=== PATIENT | male | born 1965 | race Caucasian/White ===

== ENCOUNTER 2020-04-30 02:10 | Inpatient (IN) | payer OTHER, SELFPAY ==
[~2020-04-30] VITALS: Ht 175.3 cm; Wt 84.8 kg
[2020-04-30 02:18] VITALS: BP_SYST 124
[2020-04-30] MEDS ORDERED: NACL 0.9% 1,000 ML IV ONE ×2 (03:11→05:30)
[2020-04-30 03:56] LABS: BASOPHILS % (AUTO) 0.2 % (0.0-2.0); HEMOGLOBIN 13.3 g/dL (14.0-18.0); LYMPHOCYTES # (AUTO) 0.6 K/uL (1.0-5.5); LYMPHOCYTES % (AUTO) 9.1 % (20.5-51.5); MEAN CORPUSCULAR HEMOGLOBIN 28 pg (27-31); MEAN CORPUSCULAR HGB CONC 33 % (32-36); MEAN CORPUSCULAR VOLUME 85 fL (79.0-98.0); MONOCYTES # (AUTO) 0.2 K/uL (0.0-1.0); MONOCYTES % (AUTO) 2.9 % (1.7-9.3); NEUTROPHILS # (AUTO) 6.1 K/uL (1.8-7.7); NEUTROPHILS % (AUTO) 87.8 % (40.0-70.0); PLATELET COUNT (AUTO) 173 K/uL (130-430); RED BLOOD CELL COUNT(AUTO) 4.74 MIL/uL (4.2-6.2); RED CELL DISTRIBUTION WIDTH 13.3 % (9.0-15.0)
[2020-04-30 04:09] LABS: CALCIUM 7.8 mg/dL (8.4-11.0); CREATININE 0.83 mg/dL (0.55-1.30); POTASSIUM 4.3 mmol/L (3.5-5.1)
[2020-04-30 04:15] LABS: ALBUMIN 2.7 g/dL (3.4-4.8); TOTAL BILIRUBIN 0.3 mg/dL (0.0-1.0)
[2020-04-30 04:44] LABS: C-REACTIVE PROTEIN QUANT 25.7 mg/dL (0-0.5)
[2020-04-30 04:47] LABS: INR 1.1 (0.80-1.20)
[2020-04-30] MEDS ORDERED: ALBUTEROL MDI INHALATION 8 GM INH INH PRN ×2 (05:30→11:30)
[2020-04-30] MEDS ORDERED: cefTRIAXone 1 GM IVPB PREMIX 50 ML IV ONE (05:30)
[2020-04-30] MEDS ORDERED: DEXAMETHASONE SOD PHOSPHATE 10 MG/ML VIAL IVP ONE (05:30)
[2020-04-30] MEDS ORDERED: DEXAMETHASONE SOD PHOSPHATE 10 MG/ML VIAL ONE (05:39)
[2020-04-30] MEDS ORDERED: cefTRIAXone 1 GM VIAL ONE (05:41)
[2020-04-30] MEDS ORDERED: ALBU8.5H8 INH (06:29)
[2020-04-30] MEDS ORDERED: AZIT250T PO (06:29)
[2020-04-30 06:40] LABS: BILIRUBIN,URINE NEGATIVE (NEGATIVE); CLARITY/URINE CLEAR (CLEAR); COLOR,URINE YELLOW (YELLOW); GLUCOSE,URINE NEGATIVE (NEGATIVE); KETONES,URINE 2+ (NEGATIVE); LEUKOCYTE ESTERASE ,URINE NEGATIVE (NEGATIVE); NITRITE, URINE NEGATIVE (NEGATIVE); PH,URINE 6.5 (5.0-8.0); PROTEIN URINE 1+ (NEGATIVE); UROBILINOGEN,URINE 0.2 (0.2-1.0)
[2020-04-30 06:41] LABS: BLOOD, URINE TRACE (NEGATIVE)
[2020-04-30 07:00] VITALS: BP_SYST 111
[2020-04-30 07:11] LABS: BACTERIA,URINE FEW /HPF (None Seen); WBC,URINE 0-3 /HPF (0-3)
[2020-04-30] MEDS: FAMOTIDINE 20 MG TABLET PO SCH (09:00)
[2020-04-30] MEDS: ACETAMINOPHEN 325 MG TABLET PO PRN ×3 (09:00→17:36)
[2020-04-30] MEDS ORDERED: CHOLECALCIFEROL (VITAMIN D3) 2,000 UNIT TABLET PO ONE (10:00)
[2020-04-30] MEDS ORDERED: ASCORBIC ACID 500 MG TABLET PO ONE (10:00)
[2020-04-30 11:08] VITALS: BP_SYST 104
[2020-04-30] MEDS ORDERED: ENOXAPARIN SODIUM 40 MG/0.4 ML SYRINGE SUBCUT ONE (12:00)
[2020-04-30] MEDS: cefTRIAXone 1 GM in D5W 50 ML IV SCH (12:33)
[2020-04-30 16:05] VITALS: BP_SYST 118
[2020-04-30 20:20] VITALS: BP_SYST 109
[2020-04-30] MEDS: ASCORBIC ACID 500 MG TABLET PO SCH (20:30)
[2020-04-30 23:48] VITALS: BP_SYST 118
[2020-05-01] VITALS (7 sets, daily range): BP systolic 104–123
[2020-05-01] MEDS: ACETAMINOPHEN 325 MG TABLET PO PRN (00:42)
[2020-05-01] MEDS: DEXAMETHASONE SOD PHOSPHATE 10 MG/ML VIAL IVP SCH (06:45)
[2020-05-01 07:50] LABS: BASOPHILS % (AUTO) 0.6 % (0.0-2.0); HEMATOCRIT 37.2 % (36-54); HEMOGLOBIN 12.4 g/dL (14.0-18.0); LYMPHOCYTES # (AUTO) 0.9 K/uL (1.0-5.5); LYMPHOCYTES % (AUTO) 13.1 % (20.5-51.5); MEAN CORPUSCULAR HEMOGLOBIN 28 pg (27-31); MEAN CORPUSCULAR HGB CONC 33 % (32-36); MEAN CORPUSCULAR VOLUME 85 fL (79.0-98.0); MONOCYTES # (AUTO) 0.3 K/uL (0.0-1.0); MONOCYTES % (AUTO) 3.8 % (1.7-9.3); NEUTROPHILS # (AUTO) 5.8 K/uL (1.8-7.7); NEUTROPHILS % (AUTO) 82.5 % (40.0-70.0); PLATELET COUNT (AUTO) 222 K/uL (130-430); RED BLOOD CELL COUNT(AUTO) 4.38 MIL/uL (4.2-6.2); RED CELL DISTRIBUTION WIDTH 13.5 % (9.0-15.0)
[2020-05-01] MEDS: CHOLECALCIFEROL (VITAMIN D3) 2,000 UNIT TABLET PO SCH (08:13)
[2020-05-01] MEDS: FAMOTIDINE 20 MG TABLET PO SCH (08:13)
[2020-05-01] MEDS: ASCORBIC ACID 500 MG TABLET PO SCH ×2 (08:13→20:27)
[2020-05-01] MEDS: ENOXAPARIN SODIUM 40 MG/0.4 ML SYRINGE SUBCUT SCH (08:13)
[2020-05-01 08:58] LABS: ALBUMIN 2.3 g/dL (3.4-4.8); BILIRUBIN,DIRECT 0.2 mg/dL (0.0-0.3); CALCIUM 7.9 mg/dL (8.4-11.0); CREATININE 0.61 mg/dL (0.55-1.30); POTASSIUM 4.1 mmol/L (3.5-5.1); THYROID STIMULATING HORMONE 0.69 uIu/mL (0.34-4.82); TOTAL BILIRUBIN 0.4 mg/dL (0.0-1.0)
[2020-05-01] MEDS ORDERED: CHOLECALCIFEROL (VITAMIN D3) 2,000 UNIT TABLET PO SCH (09:00)
[2020-05-01] MEDS ORDERED: ENOXAPARIN SODIUM 40 MG/0.4 ML SYRINGE SUBCUT SCH (09:00)
[2020-05-01 09:44] LABS: C-REACTIVE PROTEIN QUANT 16.2 mg/dL (0-0.5)
[2020-05-01] MEDS: cefTRIAXone 1 GM in D5W 50 ML IV SCH (12:26)
[2020-05-02] VITALS: BP_SYST 106
[2020-05-02 04:00] VITALS: BP_SYST 108
[2020-05-02] MEDS: DEXAMETHASONE SOD PHOSPHATE 10 MG/ML VIAL IVP SCH (06:16)
[2020-05-02 06:37] LABS: HEPATITIS A AB, IgM Negative (Negative); HEPATITIS B CORE AB, IgM Negative (Negative); HEPATITIS B SURFACE AG Negative (Negative)
[2020-05-02 07:29] LABS: ALBUMIN 2.6 g/dL (3.4-4.8); BILIRUBIN,DIRECT 0.1 mg/dL (0.0-0.3); CALCIUM 8.4 mg/dL (8.4-11.0); CREATININE 0.61 mg/dL (0.55-1.30); POTASSIUM 4.4 mmol/L (3.5-5.1); TOTAL BILIRUBIN 0.4 mg/dL (0.0-1.0)
[2020-05-02] MEDS: ASCORBIC ACID 500 MG TABLET PO SCH ×2 (08:29→21:43)
[2020-05-02] MEDS: FAMOTIDINE 20 MG TABLET PO SCH (08:29)
[2020-05-02] MEDS: CHOLECALCIFEROL (VITAMIN D3) 2,000 UNIT TABLET PO SCH (08:29)
[2020-05-02] MEDS: ENOXAPARIN SODIUM 40 MG/0.4 ML SYRINGE SUBCUT SCH (08:29)
[2020-05-02 09:52] LABS: C-REACTIVE PROTEIN QUANT 8.8 mg/dL (0-0.5)
[2020-05-02 12:14] VITALS: BP_SYST 133
[2020-05-02] MEDS: cefTRIAXone 1 GM in D5W 50 ML IV SCH (12:31)
[2020-05-02 16:00] VITALS: BP_SYST 110
[2020-05-02 16:38] VITALS: BP_SYST 110
[2020-05-02 20:00] VITALS: BP_SYST 123
[2020-05-03] VITALS: BP_SYST 121
[2020-05-03] MEDS: DEXAMETHASONE SOD PHOSPHATE 10 MG/ML VIAL IVP SCH (06:41)
[2020-05-03 07:52] LABS: ALBUMIN 2.2 g/dL (3.4-4.8); C-REACTIVE PROTEIN QUANT 3.9 mg/dL (0-0.5); CALCIUM 8.2 mg/dL (8.4-11.0); CREATININE 0.65 mg/dL (0.55-1.30); POTASSIUM 3.9 mmol/L (3.5-5.1); TOTAL BILIRUBIN 0.3 mg/dL (0.0-1.0)
[2020-05-03 07:53] LABS: BASOPHILS % (AUTO) 0.1 % (0.0-2.0); HEMATOCRIT 38.5 % (36-54); HEMOGLOBIN 12.7 g/dL (14.0-18.0); LYMPHOCYTES # (AUTO) 0.8 K/uL (1.0-5.5); LYMPHOCYTES % (AUTO) 9.6 % (20.5-51.5); MEAN CORPUSCULAR HEMOGLOBIN 28 pg (27-31); MEAN CORPUSCULAR HGB CONC 33 % (32-36); MEAN CORPUSCULAR VOLUME 86 fL (79.0-98.0); MONOCYTES # (AUTO) 0.6 K/uL (0.0-1.0); MONOCYTES % (AUTO) 7.9 % (1.7-9.3); NEUTROPHILS # (AUTO) 6.6 K/uL (1.8-7.7); NEUTROPHILS % (AUTO) 82.4 % (40.0-70.0); PLATELET COUNT (AUTO) 331 K/uL (130-430); RED CELL DISTRIBUTION WIDTH 13.4 % (9.0-15.0)
[2020-05-03 08:00] VITALS: BP_SYST 108
[2020-05-03] MEDS: CHOLECALCIFEROL (VITAMIN D3) 2,000 UNIT TABLET PO SCH (08:24)
[2020-05-03] MEDS: FAMOTIDINE 20 MG TABLET PO SCH (08:24)
[2020-05-03] MEDS: ASCORBIC ACID 500 MG TABLET PO SCH ×2 (08:24→20:50)
[2020-05-03] MEDS: DOCUSATE SODIUM 250 MG CAPSULE PO SCH (08:24)
[2020-05-03] MEDS: ENOXAPARIN SODIUM 40 MG/0.4 ML SYRINGE SUBCUT SCH (09:29)
[2020-05-03 12:00] VITALS: BP_SYST 111
[2020-05-03] MEDS: cefTRIAXone 1 GM in D5W 50 ML IV SCH (13:59)
[2020-05-03 16:00] VITALS: BP_SYST 111
[2020-05-03 16:46] VITALS: BP_SYST 111
[2020-05-03 20:49] VITALS: BP_SYST 103
[2020-05-04 00:14] VITALS: BP_SYST 111
[2020-05-04] MEDS: DEXAMETHASONE SOD PHOSPHATE 10 MG/ML VIAL IVP SCH (06:20)
[2020-05-04 07:48] LABS: ALBUMIN 2.5 g/dL (3.4-4.8); CALCIUM 8.2 mg/dL (8.4-11.0); CREATININE 0.68 mg/dL (0.55-1.30); POTASSIUM 4.2 mmol/L (3.5-5.1); TOTAL BILIRUBIN 0.4 mg/dL (0.0-1.0)
[2020-05-04 07:53] VITALS: BP_SYST 108
[2020-05-04] MEDS: DOCUSATE SODIUM 250 MG CAPSULE PO SCH (08:45)
[2020-05-04] MEDS: ASCORBIC ACID 500 MG TABLET PO SCH ×2 (08:45→21:37)
[2020-05-04] MEDS: FAMOTIDINE 20 MG TABLET PO SCH (08:45)
[2020-05-04] MEDS: CHOLECALCIFEROL (VITAMIN D3) 2,000 UNIT TABLET PO SCH (08:45)
[2020-05-04] MEDS: ENOXAPARIN SODIUM 40 MG/0.4 ML SYRINGE SUBCUT SCH (08:47)
[2020-05-04 12:34] VITALS: BP_SYST 108
[2020-05-04] MEDS: cefTRIAXone 1 GM in D5W 50 ML IV SCH (13:20)
[2020-05-04 16:52] VITALS: BP_SYST 103
[2020-05-04 20:00] VITALS: BP_SYST 106
[2020-05-05] VITALS: BP_SYST 132
[2020-05-05] MEDS: DEXAMETHASONE SOD PHOSPHATE 10 MG/ML VIAL IVP SCH (05:52)
[2020-05-05 07:22] LABS: ALBUMIN 2.4 g/dL (3.4-4.8); BILIRUBIN,DIRECT 0.1 mg/dL (0.0-0.3); TOTAL BILIRUBIN 0.4 mg/dL (0.0-1.0)
[2020-05-05 08:00] VITALS: BP_SYST 102
[2020-05-05 08:49] LABS: C-REACTIVE PROTEIN QUANT 1.5 mg/dL (0-0.5)
[2020-05-05] MEDS: CHOLECALCIFEROL (VITAMIN D3) 2,000 UNIT TABLET PO SCH (09:13)
[2020-05-05] MEDS: FAMOTIDINE 20 MG TABLET PO SCH (09:13)
[2020-05-05] MEDS: ASCORBIC ACID 500 MG TABLET PO SCH ×2 (09:13→22:07)
[2020-05-05] MEDS: DOCUSATE SODIUM 250 MG CAPSULE PO SCH (09:13)
[2020-05-05] MEDS: ENOXAPARIN SODIUM 40 MG/0.4 ML SYRINGE SUBCUT SCH (09:14)
[2020-05-05 12:00] VITALS: BP_SYST 121
[2020-05-05] MEDS: cefTRIAXone 1 GM in D5W 50 ML IV SCH ×2 (13:30→14:20)
[2020-05-05 16:00] VITALS: BP_SYST 111
[2020-05-05 20:00] VITALS: BP_SYST 143
[2020-05-06] VITALS: BP_SYST 126
[2020-05-06] MEDS: ACETAMINOPHEN 325 MG TABLET PO PRN (03:17)
[2020-05-06] MEDS: DEXAMETHASONE SOD PHOSPHATE 10 MG/ML VIAL IVP SCH (06:18)
[2020-05-06 08:06] LABS: ALBUMIN 2.3 g/dL (3.4-4.8); BILIRUBIN,DIRECT 0.2 mg/dL (0.0-0.3); TOTAL BILIRUBIN 0.5 mg/dL (0.0-1.0)
[2020-05-06 09:30] VITALS: BP_SYST 100
[2020-05-06] MEDS: ASCORBIC ACID 500 MG TABLET PO SCH ×2 (10:02→21:27)
[2020-05-06] MEDS: FAMOTIDINE 20 MG TABLET PO SCH (10:02)
[2020-05-06] MEDS: DOCUSATE SODIUM 250 MG CAPSULE PO SCH (10:02)
[2020-05-06] MEDS: CHOLECALCIFEROL (VITAMIN D3) 2,000 UNIT TABLET PO SCH (10:03)
[2020-05-06] MEDS: ENOXAPARIN SODIUM 40 MG/0.4 ML SYRINGE SUBCUT SCH (10:03)
[2020-05-06 12:30] VITALS: BP_SYST 90
[2020-05-06] MEDS: cefTRIAXone 1 GM in D5W 50 ML IV SCH (13:41)
[2020-05-06 17:40] VITALS: BP_SYST 103
[2020-05-06 20:00] VITALS: BP_SYST 102
[2020-05-07] VITALS: BP_SYST 105
[2020-05-07] MEDS: DEXAMETHASONE SOD PHOSPHATE 10 MG/ML VIAL IVP SCH (06:20)
[2020-05-07 07:25] LABS: ALBUMIN 2.4 g/dL (3.4-4.8); CALCIUM 8.2 mg/dL (8.4-11.0); CREATININE 0.74 mg/dL (0.55-1.30); POTASSIUM 3.4 mmol/L (3.5-5.1); TOTAL BILIRUBIN 0.4 mg/dL (0.0-1.0)
[2020-05-07 08:00] VITALS: BP_SYST 103
[2020-05-07] MEDS: FAMOTIDINE 20 MG TABLET PO SCH (08:14)
[2020-05-07] MEDS: ASCORBIC ACID 500 MG TABLET PO SCH (08:14)
[2020-05-07] MEDS: ENOXAPARIN SODIUM 40 MG/0.4 ML SYRINGE SUBCUT SCH (08:14)
[2020-05-07] MEDS: CHOLECALCIFEROL (VITAMIN D3) 2,000 UNIT TABLET PO SCH (08:14)
[2020-05-07] MEDS: DOCUSATE SODIUM 250 MG CAPSULE PO SCH (08:14)
[2020-05-07 08:33] VITALS: BP_SYST 102
[2020-05-07] MEDS: cefTRIAXone 1 GM in D5W 50 ML IV SCH (12:13)
[2020-05-07 12:14] VITALS: BP_SYST 95
[2020-05-07 16:47] VITALS: BP_SYST 102
[2020-05-07] MEDS ORDERED: POTASSIUM CHLORIDE 10 MEQ TAB.PRT.SR PO ONE (18:15)
[2020-05-07] MEDS ORDERED: DEC4 PO (18:57)
[2020-05-07] MEDS ORDERED: DOXY100C PO (18:58)
[2020-05-07] MEDS ORDERED: FAMO-132 PO (18:58)
[2020-05-07] MEDS ORDERED: ASCO500T20 PO (18:59)
[2020-05-07] MEDS ORDERED: ZINC220T4 PO (18:59)
[2020-05-07] MEDS ORDERED: APIX2.5T PO (19:00)
[2020-05-07] MEDS ORDERED: VITD2000 PO (19:00)
== END 2020-05-07 19:40 | disposition home or self-care (01) | DRG 871 ==
LOC: SED 02:10 → STU 05:25
PROVIDERS: ADMIT Internal Medicine; ATTEND Internal Medicine
PROC: XW13325 Transfusion of Convalescent Plasma (Nonautologous) into Peripheral Vein, Percutaneous Approach, New Technology Group 5 (ICD-10-PCS; principal; 2020-04-30)
PROC: XW033E5 Introduction of Remdesivir Anti-infective into Peripheral Vein, Percutaneous Approach, New Technology Group 5 (ICD-10-PCS; 2020-05-01)
DX: A41.9 Sepsis, unspecified organism (principal); U07.1 COVID-19; J12.89 Other viral pneumonia; E43 Unspecified severe protein-calorie malnutrition; J96.01 Acute respiratory failure with hypoxia; E87.1 Hypo-osmolality and hyponatremia; R74.01 Elevation of levels of liver transaminase levels; D72.810 Lymphocytopenia; E86.0 Dehydration; Z68.27 Body mass index [BMI] 27.0-27.9, adult
CPT/HCPCS: 36415; 36600; 71045; 76700-TC; 80048; 80053; 80074; 80076; 81000-TC; 82248-TC; 82550-TC; 82728; 82803-TC; 83605; 83615-TC; 83880; 84443-TC; 84484; 85025; 85379; 85384-TC; 85610-TC; 85730-TC; 86140; 86886; 86900; 86901; 87040-TC; 87086; 93005; 96361; 96365; 96375; 99285; G0378; J0696; J1100; J1650; J7030; J7050; J7060; P9017